=== PATIENT | male | born 1955 | race Caucasian/White ===

== ENCOUNTER 2020-06-20 10:13 | Emergency (ER) | payer MEDICAID ==
[2020-06-20 11:30] VITALS: BP 145/46
== END 2020-06-20 11:31 | disposition home or self-care (01) ==
LOC: ER 10:14
DX: S71.002D Unspecified open wound, left hip, subsequent encounter (principal); X58.XXXD Exposure to other specified factors, subsequent encounter
CPT/HCPCS: 99281